=== PATIENT | female | born 1980 | race Caucasian/White ===

== ENCOUNTER 2016-08-05 08:47 | Day surgery (SDC) | payer OTHER ==
[2016-07-30 16:49] VITALS: BMI 24.0
--- NOTE | 2016-08-04 18:38 | HP ---
DATE OF ADMISSION: 08/05/2016 The patient is being admitted to the [facility] tomorrow for surgery. HISTORY: This is a 35-year-old woman who has been known to have cholelithiasis for 12 years, since her initial bout of biliary colic during 12 years ago. Recently gave to a new child, has become symptomatic once again. Patient has had a recent severe attack of epigastric pain radiating to her back, associated with nausea and vomiting. At this juncture, she has decided to move in the direction of definitive management. Patient's most recent ultrasound evaluation of February 2016 demonstrates multiple small gallstones within the gallbladder lumen. There is also a suggestion of a 7-mm polyp. There is no biliary ductal dilatation. Patient has had no unintentional weight loss. No history of jaundice. There are no other members of her family who have had biliary disease. She does have a fatty food intolerance and her last bout followed consumption of [place] food. Past medical history is significant for hypercholesterolemia and Ben disease. No history of hypertension; heart disease; diabetes; respiratory, renal or hepatic insufficiency. Past surgical history is significant for section. ALLERGIES: None known. REGULAR MEDICATIONS: Propranolol, levothyroxine. SOCIAL HISTORY: Negative tobacco, negative alcohol. REVIEW OF SYSTEMS: Nil. PHYSICAL EXAMINATION: Abdomen soft, nontender, with no palpable findings. IMPRESSION: Chronic cholecystitis/cholelithiasis. PLAN: Laparoscopic cholecystectomy/possible open cholecystectomy. Indications, alternatives, possible complications reviewed. Consent obtained. Patient was seen preoperatively by Dr. Zoran Khan. Please refer to his notes for her medical details. MIGDALIA GLASS M.D. LESLEE/[id number] cc: Operating room; Zoran Khan MD
[2016-08-05] MEDS ORDERED: PROPOFOL 20 ML ONE (11:39)
[2016-08-05] MEDS ORDERED: ROCURONIUM BROMIDE 50 MG/5 ML VIAL ONE (11:39)
[2016-08-05] MEDS ORDERED: MIDAZOLAM HCL 2 MG/2 ML SINGLE DOSE VIAL ONE (11:39)
[2016-08-05] MEDS ORDERED: ceFAZolin SODIUM 1 GM VIAL ONE (12:17)
[2016-08-05] MEDS ORDERED: DEXAMETHASONE SOD PHOSPHATE 4 MG/1 ML VIAL ONE (12:21)
[2016-08-05] MEDS ORDERED: ONDANSETRON 4 MG/2 ML VIAL ONE ×2 (12:21→13:57)
[2016-08-05] MEDS ORDERED: HYDROmorphone HCL/PF 1 MG/ML VIAL (FOR PYXIS CHARGING ONLY) ONE (12:29)
[2016-08-05] MEDS ORDERED: DESFLURANE GAS 240 ML BOTTLE IH ONE (12:44)
[2016-08-05] MEDS ORDERED: LACTATED RINGERS SOLUTION 1,000 ML IV SCH (13:30)
[2016-08-05] MEDS ORDERED: ONDANSETRON 4 MG/2 ML VIAL IVPUSH PRN ×2 (13:38→14:04)
[2016-08-05] MEDS ORDERED: ACETAMINOPHEN INJECTION 100 ML IVPB ONE (13:52)
[2016-08-05] MEDS ORDERED: KETOROLAC TROMETHAMINE 30 MG/1 ML VIAL ONE (13:52)
[2016-08-05] MEDS: KETOROLAC TROMETHAMINE 30 MG/1 ML VIAL IVPUSH ONE ×2 (13:55→15:39)
[2016-08-05] MEDS: ACETAMINOPHEN 1000 MG/100 ML VIAL (NON FORMULARY) IVPB ONE ×2 (13:57→15:38)
[2016-08-05] MEDS ORDERED: morphine CARPU-JECT 4 MG/1 ML DISP.SYRIN IVPB PRN (14:03)
[2016-08-05] MEDS ORDERED: ALBUTEROL SO4 6.7 GM HFA INHALER IH PRN ×2 (14:06)
[2016-08-05] MEDS ORDERED: D5-1/2NS+20 MEQ KCL - 1,000 ML IV SCH (14:15)
--- NOTE | 2016-08-05 14:57 | OP ---
DATE OF OPERATION: 08/05/2016 PREOPERATIVE DIAGNOSIS: Chronic cholecystitis/cholelithiasis. POSTOPERATIVE DIAGNOSIS: Chronic cholecystitis/cholelithiasis. PROCEDURE: Laparoscopic cholecystectomy. OPERATING SURGEON: Tariq Byrd MD MOLDER INFLATED BALL: Jong Verdugo MD ANESTHESIA: Tone Lezama DO HISTORY: A 35-year-old woman admitted to the hospital for laparoscopic cholecystectomy as management of symptomatic cholelithiasis. Indications, alternatives, possible complications reviewed. Consent obtained. DESCRIPTION OF PROCEDURE: With the patient in the supine position, after general anesthesia, the abdomen was prepped and draped in sterile fashion using chlorhexidine. Small incision was made in the infraumbilical region, through which a Veress needle was placed into the abdominal cavity. Abdominal cavity was insufflated to an adequate pressure and volume using CO2 gas. The Veress needle was removed. An 11-mm trocar port was placed through the umbilical wound. The camera lens passed through this port and the intraabdominal cavity visualized. Under direct vision, two 5-mm right ports were placed through which clamps were passed to maintain traction on the gallbladder and aid in the dissection. An 11-mm port was placed in the epigastrium through which the operating instruments were passed. Limited exploration of the abdomen revealed no significant findings other than some adhesions about the gallbladder. These were taken down under direct vision, exposing the entire gallbladder and hepatoduodenal ligament. Cystic duct was identified. The cystic duct/bile duct junction was noted. The cystic duct was clipped and divided. The adjacent artery was managed similarly. The gallbladder was removed from the gallbladder bed using the electrocautery apparatus. Ultimately, the gallbladder was disconnected and placed in a retrieval bag. The right upper quadrant was irrigated. The irrigant retrieved. Adequate hemostasis ensured. All port sites were visualized and removed under direct vision. No bleeding identified. Ultimately, the gallbladder was passed through the umbilical port and delivered uneventfully. The pneumoperitoneum was allowed to escape. The fascia at the umbilicus was approximated with interrupted 0 Vicryl sutures. All skin wounds were closed using subcuticular 4-0 Biosyn sutures. INSTRUMENT COUNTS: Correct. ESTIMATED BLOOD LOSS: Minimal. SPECIMEN: Gallbladder. DRAINS: None. The patient tolerated the procedure, and the procedure was terminated. Charlie CADENA/[id number] cc: Zoran Khan MD
[2016-08-05] MEDS ORDERED: ACETAMINOPHEN 325 MG TABLET (FP) PO PRN (21:00)
[2016-08-05] MEDS: FAMOTIDINE 20 MG/50 ML IVPB 50 ML IVPB SCH (21:42)
[2016-08-05] MEDS: oxyCODONE HCL 5 MG TABLET PO PRN (21:42)
[2016-08-06] MEDS ORDERED: LEVOTHYROXINE NA 88 MCG TABLET (FP) PO SCH (07:00)
[2016-08-06 09:03] VITALS: BP 108/66; PULSE 63; TEMP 97.7
[2016-08-06] MEDS: FAMOTIDINE 20 MG/50 ML IVPB 50 ML IVPB SCH (09:45)
[2016-08-06] MEDS: oxyCODONE HCL 5 MG TABLET PO PRN (09:52)
[2016-08-06] MEDS ORDERED: ENOXAPARIN NA (PORCINE) 40 MG/0.4 ML DISP.SYRIN SQ SCH (10:00)
--- NOTE | 2016-08-07 11:34 | PATH ---
Surgical Pathology Report Patient Name: SOLOMON RIVAS Med. Rec. #: [id number] /Age/Gender: 1980 (Age: 35) / F Account: [id number] Location: [facility] AMBULATORY Taken: 08/05/2016 Received: 08/05/2016 Reported: 08/07/2016 Physicians: Tariq Byrd M.D. Specimen(s) Received GALLBLADDER AND STONE Clinical History Calculus of gallbladder Final Diagnosis GALLBLADDER, CHOLECYSTECTOMY: CHRONIC CHOLECYSTITIS, CHOLESTEROLOSIS, AND CHOLELITHIASIS. Electronically Signed Lorne Villanueva M.D. Gross Description Received in formalin, labeled "gallbladder," is a 5.8 x 2.0 x 1.7 cm. gallbladder with a 0.2 cm. in length portion of cystic duct attached. The outer surface is campbell-green with multifocal defects and varies from smooth to shaggy. The lumen contains green, tenacious bile as well as 5 yellow, irregular, bosselated choleliths ranging from 0.3-0.7 cm in greatest dimension. The mucosa is campbell-green with gold cholesterol stippling. The wall of the gallbladder averages 0.1 cm. in thickness. Associate Professor Plant Pathology sections are submitted in one cassette. 08/06/201608/06/2016
== END 2016-08-06 12:19 | disposition home or self-care (01) ==
LOC: FASU 08:47 → FM/S 15:13 → FASU 08-06 12:19
PROVIDERS: ATTEND Surgery
PROC: 0FT44ZZ Resection of Gallbladder, Percutaneous Endoscopic Approach (ICD-10-PCS; principal; 2016-08-05 12:24)
DX: K80.10 Calculus of gallbladder with chronic cholecystitis without obstruction (principal)
CPT/HCPCS: 84703; 86850; 86900; 86901; 88304-TC; 94760